=== PATIENT | male | born 1980 | race Caucasian/White ===

== ENCOUNTER 2019-06-20 21:28 | Emergency (ER) | payer OTHER ==
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
[2019-06-20] MEDS ORDERED: SODIUM CHLORIDE 1,000 ML IV SCH (22:00)
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
[2019-06-20 22:58] VITALS: TEMP 98.2; BMI 29.7
[2019-06-20 23:06] LABS: BASO % 0.3 % (0-2.0); EOS % 0.1 % (0-4.5); HEMATOCRIT 43.3 % (35.4-49); HEMOGLOBIN 14.8 GM/dL (11.7-16.9); LYMPH % 9.8 % (8-40); MCH 29.3 pg (25.7-33.7); MCHC 34.1 g/dl (32.0-35.9); MEAN PLT VOLUME 7.7 fl (7.5-11.1); MONO % 3.1 % (3.8-10.2); NEUT % 86.7 % (42.8-82.8); PLATELET COUNT 280 K/MM3 (134-434); RBC 5.04 M/mm3 (4.00-5.60); RDW 13.6 % (11.9-15.9); WHITE BLOOD COUNT 12.4 K/mm3 (4.0-10.0)
[2019-06-20] MEDS ORDERED: FAMOTIDINE 20 MG/50 ML IVPB 20 MG/50 ML MG IVPB ONE ×2 (23:11→23:29)
[2019-06-20 23:19] LABS: INR 1.02 (0.83-1.09)
[2019-06-20 23:22] LABS: ACTIVATED PTT 33.6 SECONDS (25.2-36.5)
[2019-06-20] MEDS ORDERED: ACETAMINOPHEN 1000 MG/100 ML VIAL (NON FORMULARY) IVPB ONE (23:28)
[2019-06-20] MEDS ORDERED: ACETAMINOPHEN INJECTION 100 ML IVPB ONE (23:29)
[2019-06-20 23:36] LABS: ALBUMIN 4.6 g/dl (3.4-5.0); BILIRUBIN,TOTAL 0.4 mg/dL (0.2-1); BLOOD UREA NITROGEN 20.3 mg/dL (7-18); CALCIUM 9.2 mg/dL (8.5-10.1); CREATININE 0.9 mg/dL (0.55-1.3); POTASSIUM 3.7 mmol/L (3.5-5.1); TOT PROT 8.5 g/dl (6.4-8.2)
[2019-06-20 23:45] LABS: CHOLESTEROL 184 mg/dL (50-200); HDL CHOLESTEROL 51 mg/dL (40-60); LDL CHOLESTEROL (ONLY SJRH) 114 mg/dL (5-100); TRIGLYCERIDES 66 mg/dL (0-150)
[2019-06-21 03:36] VITALS: BP 134/80; PULSE 70
--- NOTE | 2019-06-21 11:57 | EKG ---
Test Reason : Blood Pressure : / mmHG Vent. Rate : 076 BPM Atrial Rate : 076 BPM P-R Int : 138 ms QRS Dur : 108 ms QT Int : 388 ms P-R-T Axes : 016 039 -10 degrees QTc Int : 436 ms NORMAL SINUS RHYTHM NONSPECIFIC T WAVE ABNORMALITY ABNORMAL ECG NO PREVIOUS ECGS AVAILABLE Confirmed by GABINO MANCERA MD ([id number]) on 06/21/2019 11:57:21 AM Referred By: Confirmed By:GABINO MANCERA MD
== END 2019-06-21 01:45 | disposition home or self-care (01) ==
LOC: JER 21:28
PROC: 3E033NZ Introduction of Analgesics, Hypnotics, Sedatives into Peripheral Vein, Percutaneous Approach (ICD-10-PCS; principal; 2019-06-20)
PROC: 3E033GC Introduction of Other Therapeutic Substance into Peripheral Vein, Percutaneous Approach (ICD-10-PCS; 2019-06-20)
DX: R07.9 Chest pain, unspecified (principal); M79.602 Pain in left arm
CPT/HCPCS: 36415; 70450-TC; 71045-TC-FY; 71250-TC; 80053; 80061; 82550; 82553; 83721; 84484; 85025; 85610; 85730; 86850; 86900; 86901; 93005; 93010; 99284-25; J0131